=== PATIENT | female | born 1985 | race Caucasian/White ===

== ENCOUNTER 2017-06-28 08:08 | Day surgery (SDC) | payer BC ==
--- NOTE | ~2017-06-28 | EGD ---
EGD REPORT [facility] [address] [id number] NAME: ABRIL PEACE : [birth year] STATUS : REG [facility] [place] PAT#: [id number] AGE: 32 ADM/REG DATE : 06/28/17 MR#: [id number] REPORT SERV DATE: 06/28/17 DICTATED BY: BARRERA DURAN DATE: 06/28/17 REPORT STATUS : Draft TRANSCRIBED BY: [facility] DATE: 06/28/17 Endoscopy Center Patient Name: Abril Peace Date of : 1985 Attending MD: BARRERA DURAN MD Procedure Date No Time: 06/28/2017 Procedure: Colonoscopy Indications: Lower abdominal pain, Chronic diarrhea Referring MD: GEOVANNA BERRY Medicines: Propofol per Anesthesia Complications: No immediate complications. Estimated blood loss: None. Procedure: Pre-Anesthesia Assessment: - After reviewing the risks and benefits, the patient was deemed in satisfactory condition to undergo the procedure. - Prior to the procedure, a History and Physical was performed, and patient medications and allergies were reviewed. The patient's tolerance of previous anesthesia was also reviewed. The risks and benefits of the procedure and the sedation options and risks were discussed with the patient. All questions were answered, and informed consent was obtained. Prior Anticoagulants: The patient has taken no previous anticoagulant or antiplatelet agents. ASA Grade Assessment: II - A patient with mild systemic disease. After reviewing the risks and benefits, the patient was deemed in satisfactory condition to undergo the procedure. After I obtained informed consent, the scope was passed under direct vision. Throughout the procedure, the patient's blood pressure, pulse, and oxygen saturations were monitored continuously. The CF [id number] was introduced through the anus and advanced to the terminal ileum, with identification of the appendiceal orifice and IC valve. The colonoscopy was performed without difficulty. The ileocecal valve, appendiceal orifice and terminal ileum were photographed. The patient tolerated the procedure well. The quality of the bowel preparation was fair. The bowel preparation used was HalfLytely. Scope withdrawal time was greater than 6 minutes. Findings: The perianal and digital rectal examinations were normal. Pertinent negatives include normal sphincter tone. A scattered area of mucosa in the terminal ileum was mildly erythematous with punctate red dots. Biopsies were taken with a cold forceps for EGD REPORT [address] [place]. [address] NAME: ABRIL PEACE : [birth year] STATUS : REG [facility] [place] PAT#: [id number] AGE: 32 ADM/REG DATE : 06/28/17 MR#: [id number] REPORT SERV DATE: 06/28/17 DICTATED BY: BARRERA DURAN DATE: 06/28/17 REPORT STATUS : Draft TRANSCRIBED BY: [employer] DATE: 06/28/17 histology. Estimated blood loss: none. A sessile polyp was found in the sigmoid colon. The polyp was small in size. This was biopsied with a cold forceps for histology. Estimated blood loss: none. The descending colon and ascending colon appeared normal. Biopsies were taken with a cold forceps for histology. Estimated blood loss: none. The exam was otherwise without abnormality. Impression: - Erythematous mucosa in the terminal ileum. Biopsied. - One small polyp in the sigmoid colon. Biopsied. - The descending colon and ascending colon are normal. Biopsied. - The examination was otherwise normal. - Irritable bowel syndrome with diarrhea. - Endometriosis. Recommendation: - Discharge patient to home (ambulatory). - Return to previous diet. - Continue present medications. - Take Metamucil one tablespoon DAILY. - Take Align or Culturelle probiotic DAILY. - Continue hyocyamine up to 3-4 times daily as needed for cramping or abdominal pain. - May use Imodium over the counter as needed for diarrhea. - Await pathology results. - Repeat colonoscopy at age 48 for screening purposes. - Return to GI clinic PRN. - Patient has a contact number available for emergencies. The signs and symptoms of potential delayed complications were discussed with the patient. Return to normal activities tomorrow. Written discharge instructions were provided to the patient. Procedure Code(s): --- Professional --- 83827, Colonoscopy, flexible, proximal to splenic flexure; with biopsy, single or multiple Diagnosis Code(s): --- Professional --- K63.9, Disease of intestine, unspecified D12.5, Benign neoplasm of sigmoid colon K58.0, Irritable bowel syndrome with diarrhea R10.30, Lower abdominal pain, unspecified K52.9, Noninfective gastroenteritis and colitis, unspecified EGD REPORT [facility] [address] [id number] NAME: ABRIL PEACE : [birth year] STATUS : REG [facility] [place] PAT#: [id number] AGE: 32 ADM/REG DATE : 06/28/17 MR#: [id number] REPORT SERV DATE: 06/28/17 DICTATED BY: BARRERA DURAN. DATE: 06/28/17 REPORT STATUS : Draft TRANSCRIBED BY: [employer] DATE: 06/28/17 CPT copyright 2013 [employer]. All rights reserved. The codes documented in this report are preliminary and upon catalogue illustrator review may be revised to meet current compliance requirements. BARRERA DURAN MD 06/28/2017 11:22 AM This report has been signed electronically. Number of Addenda: 0 Note Initiated On: 06/28/2017 10:37 AM Scope Withdrawal Time 0 hours 6 minutes 38 seconds [id number] [id number]
--- NOTE | ~2017-06-28 | EGD ---
EGD REPORT [facility] [address] [id number] NAME: ABRIL PEACE : [birth year] [place] [facility] [place] PAT#: [id number] AGE: 32 ADM/REG DATE : 06/28/17 MR#: [id number] REPORT SERV DATE: 06/28/17 DICTATED BY: BARRERA DURAN DATE: 06/28/17 REPORT STATUS : Draft TRANSCRIBED BY: [facility] DATE: 06/28/17 Endoscopy Center Patient Name: Abril Peace Date of : 1985 Attending MD: BARRERA DURAN MD Procedure Date No Time: 06/28/2017 Procedure: Upper GI endoscopy Indications: Diarrhea, Nausea with vomiting Referring MD: GEOVANNA BERRY Medicines: Propofol per Anesthesia Complications: No immediate complications. Estimated blood loss: None. Procedure: Pre-Anesthesia Assessment: - After reviewing the risks and benefits, the patient was deemed in satisfactory condition to undergo the procedure. - Prior to the procedure, a History and Physical was performed, and patient medications and allergies were reviewed. The patient's tolerance of previous anesthesia was also reviewed. The risks and benefits of the procedure and the sedation options and risks were discussed with the patient. All questions were answered, and informed consent was obtained. Prior Anticoagulants: The patient has taken no previous anticoagulant or antiplatelet agents. ASA Grade Assessment: II - A patient with mild systemic disease. After reviewing the risks and benefits, the patient was deemed in satisfactory condition to undergo the procedure. After obtaining informed consent, the endoscope was passed under direct vision. Throughout the procedure, the patient's blood pressure, pulse, and oxygen saturations were monitored continuously. The GIF [id number] was introduced through the mouth, and advanced to the jejunum. The upper GI endoscopy was accomplished without difficulty. The patient tolerated the procedure well. Findings: Diffuse moderate erythema was found in the lower third of the esophagus. A gaping lower esophageal sphincter was found. The entire examined stomach and gastroesophageal junction (on retroflexion) were normal. The examined duodenum was normal. Biopsies were taken with a cold forceps for histology. Estimated blood loss: none. Impression: - Erythema in the lower third of the esophagus. EGD REPORT [address] [address] NAME: ABRIL PEACE : [birth year] [place] [facility] [place] [id number] AGE: 32 ADM/REG DATE : 06/28/17 MR#: [id number] REPORT SERV DATE: 06/28/17 DICTATED BY: BARRERA DURAN DATE: 06/28/17 REPORT STATUS : Draft TRANSCRIBED BY: [employer] DATE: 06/28/17 - Gaping lower esophageal sphincter. - Normal stomach and gastroesophageal junction. - Normal examined duodenum. Biopsied. - Non-erosive esophageal reflux (NERD) disease present. - Cyclic N/V with normal GES. Recommendation: - Discharge patient to home (ambulatory). - Return to previous diet. - Continue present medications. - Increase Prilosec (omeprazole) to 40 mg DAILY before breakfast. - Await pathology results. - Perform a colonoscopy today. - Patient has a contact number available for emergencies. The signs and symptoms of potential delayed complications were discussed with the patient. Return to normal activities tomorrow. Written discharge instructions were provided to the patient. Procedure Code(s): --- Professional --- 87021, Esophagogastroduodenoscopy, flexible, transoral; with biopsy, single or multiple Diagnosis Code(s): --- Professional --- K22.9, Disease of esophagus, unspecified K22.8, Other specified diseases of esophagus K21.9, Gastro-esophageal reflux disease without esophagitis R19.7, Diarrhea, unspecified R11.2, Nausea with vomiting, unspecified CPT copyright 2013 [employer]. All rights reserved. The codes documented in this report are preliminary and upon clinical coder review may be revised to meet current compliance requirements. BARRERA DURAN MD 06/28/2017 10:57 AM This report has been signed electronically. Number of Addenda: 0 Note Initiated On: 06/28/2017 10:40 AM Scope Withdrawal Time 0 hours 0 minutes 0 seconds [address] [id number]
== END 2017-06-28 23:59 | disposition home or self-care (01) ==
LOC: SDC 08:08 → REF 08:08 → SDC 23:59
PROVIDERS: Internal Medicine Gastroenterology
PROC: 0DBN8ZX Excision of Sigmoid Colon, Via Natural or Artificial Opening Endoscopic, Diagnostic (ICD-10-PCS; 2017-06-28)
PROC: 0DB98ZX Excision of Duodenum, Via Natural or Artificial Opening Endoscopic, Diagnostic (ICD-10-PCS; 2017-06-28)
PROC: 0DBB8ZX Excision of Ileum, Via Natural or Artificial Opening Endoscopic, Diagnostic (ICD-10-PCS; principal; 2017-06-28 10:50)
PROC: 0DBK8ZX Excision of Ascending Colon, Via Natural or Artificial Opening Endoscopic, Diagnostic (ICD-10-PCS; 2017-06-28 10:50)
DX: K63.5 Polyp of colon (principal); K22.8 Other specified diseases of esophagus; K21.9 Gastro-esophageal reflux disease without esophagitis; K58.9 Irritable bowel syndrome, unspecified; F32.9 Major depressive disorder, single episode, unspecified; Z90.710 Acquired absence of both cervix and uterus; Z88.5 Allergy status to narcotic agent; Z79.899 Other long term (current) drug therapy; Z98.890 Other specified postprocedural states
CPT/HCPCS: 88305; A9270-GY